=== PATIENT | male | born 1985 | race Caucasian/White ===

== ENCOUNTER 2017-09-23 13:34 | Emergency (ER) | payer BC, OTHER ==
[2017-09-23 13:53] VITALS: BP 136/85; PULSE 77; RESP 16; TEMP 97.6
[2017-09-23] MEDS ORDERED: LIDOCAINE 1% INJ 10MG/ML (20 ML MDV) SQ ONE (13:58)
--- NOTE | 2017-09-23 14:02 | ED ---
Wound/Laceration HPI - General Stated Complaint: rt hand lac Time Seen by Provider: 09/23/17 13:43 Source: patient, RN notes reviewed Mode of arrival: ambulatory Limitations: no limitations - History of Present Illness Initial Comments: This a 32-year-old male presents emergency Department from [facility] for right hand laceration. Patient states that he was tightening a bolt states that his wrench slipped his hand struck onto a metal bar. Patient has a laceration of his third and fourth digit. Patient was told that he has a laceration of his tendon on his third digit. He denies any paresthesias. Patient has full range of motion of all digits on his right hand. Patient is right-hand dominant. Patient's tetanus was up-to-date 5 years ago. - Related Data Previous Rx's Medication Instructions Recorded Cephalexin [Keflex] 500 mg PO Q8HR #21 cap 09/23/17 Allergies Allergy/AdvReac Type Severity Reaction Status Date / Time No Known Allergies Allergy Verified 09/23/17 13:54 Review of Systems ROS Statement: Those systems with pertinent positive or pertinent negative responses have been documented in the HPI. ROS Other: All systems not noted in ROS Statement are negative. Past Medical History Past Medical History: No Reported History History of Any Multi-Drug Resistant Organisms: None Reported Past Surgical History: No Surgical Hx Reported Past Psychological History: No Psychological Hx Reported Smoking Status: Never smoker Past Alcohol Use History: Heavy Past Drug Use History: None Reported General Exam General appearance: alert, in no apparent distress Head exam: Present: atraumatic, normocephalic, normal inspection Respiratory exam: Present: normal lung sounds bilaterally. Absent: respiratory distress, wheezes, rales, rhonchi, stridor Cardiovascular Exam: Present: regular rate, normal rhythm, normal heart sounds. Absent: systolic murmur, diastolic murmur, rubs, gallop, clicks Extremities exam: Present: other (Right hand third digit there is a 1 cm- laceration right hand fourth digit there is a 1 cm laceration, patient has full range of motion, full strength of all digits there is no obvious tendon laceration) Skin exam: Present: warm, dry, intact, normal color. Absent: rash Course Vital Signs 09/23/17 13:44 Temperature 97.6 F Pulse Rate 77 Respiratory 16 Rate Blood Pressure 136/85 O2 Sat by Pulse 99 Oximetry Procedures - Laceration Laceration #1 Consent Obtained: verbal consent Indication: laceration Site: hand (Right hand third digit ) Size (cm): 1 Description: linear Depth: simple, single layer Anesthetic Used: lidocaine 1%, without epi Anesthesia Technique: local infiltration Amount (mls): 3 Pre-repair: wound explored, irrigated extensively, deep structures intact Type of Sutures: nylon Size of Sutures: 4-0 Number of Sutures: 4 Technique: simple, interrupted Patient Tolerated Procedure: well, no complications Laceration #2 Consent Obtained: verbal consent Site: hand (Right hand fourth digit ) Size (cm): 1 Description: linear Depth: simple, single layer Anesthetic Used: lidocaine 1%, without epi Anesthesia Technique: local infiltration Amount (mls): 3 Pre-repair: wound explored, irrigated extensively, deep structures intact Type of Sutures: nylon Size of Sutures: 4-0 Number of Sutures: 3 Technique: simple, interrupted Patient Tolerated Procedure: well, no complications Medical Decision Making - Medical Decision Making 32-year-old male presented for possible tendon laceration. There is no tendon laceration at he has full range of motion I did discuss case with orthopedics and he can follow-up next week. They did request the patient placed on antibiotics. Patient was placed in a splint Disposition Clinical Impression: Finger laceration Disposition: HOME SELF-CARE Condition: Stable Instructions: Finger Laceration (ED), Care For Your Stitches (ED) Additional Instructions: Follow-up with orthopedics as directed.Please return to the Emergency Department if symptoms worsen or any other concerns. Prescriptions: Cephalexin [Keflex] 500 mg PO Q8HR #21 cap Is patient prescribed a controlled substance at d/c from ED?: No Referrals: Amanda Alcala MD [Primary Care Provider] - 1-2 days Gene Jackson DO [Doctor of Osteopathic Medicine] - 1-2 days Time of Disposition: 14:20
== END 2017-09-23 14:41 | disposition home or self-care (01) ==
LOC: EC 13:34
DX: S61.212A Laceration without foreign body of right middle finger without damage to nail, initial encounter (principal); S61.214A Laceration without foreign body of right ring finger without damage to nail, initial encounter; W27.8XXA Contact with other nonpowered hand tool, initial encounter; Y93.89 Activity, other specified; Y92.69 Other specified industrial and construction area as the place of occurrence of the external cause; Y99.0 Civilian activity done for income or pay
CPT/HCPCS: 12001; 99282

== ENCOUNTER → 2022-12-16 | Outpatient (CLI) | payer OTHER ==
--- NOTE | 2022-12-16 11:03 | XR ---
EXAMINATION TYPE: XR lumbar spine 2 or 3V DATE OF EXAM: 12/16/2022 CLINICAL HISTORY: pain TECHNIQUE: S39.012D Strain of muscle M54.16 Radiculopathy COMPARISON: None. FINDINGS: There are 6 lumbar type vertebral bodies identified. Incomplete fusion of the posterior arch of L6. T he lumbar spine shows satisfactory alignment without evidence of acute fracture or dislocation. Verte bral body heights are within normal limits. Disc spaces are within normal limits. The overlying so ft tissue appears unremarkable. IMPRESSION: 1. No acute fracture. 2. Spina bifida occulta at L6.
== END | disposition home or self-care (01) ==
LOC: RADXRMAIN 10:30
PROVIDERS: ATTEND Emergency Medicine
DX: S39.012D Strain of muscle, fascia and tendon of lower back, subsequent encounter (principal); M54.16 Radiculopathy, lumbar region; Q76.0 Spina bifida occulta
CPT/HCPCS: 72100

== ENCOUNTER → 2022-12-21 | Outpatient (CLI) | payer OTHER ==
--- NOTE | 2022-12-21 10:19 | XR ---
EXAMINATION TYPE: XR Hip Complete RT DATE OF EXAM: 12/21/2022 10:15 AM INDICATION: Patient age:Male; 37 years old; Reason for study: S76.001D UNSP INJURY OF MUSCLE, FASCIA AND TENDON; PHH. COMPARISON: None. TECHNIQUE: The right hip was examined in the frontal and lateral projections. FINDINGS: No evidence of any acute osseous pathology, joint dislocation, or soft tissue swelling. IMPRESSION: No acute osseous pathology.
== END | disposition home or self-care (01) ==
LOC: RADXRMAIN 09:38
PROVIDERS: ATTEND Emergency Medicine
DX: S76.001D Unspecified injury of muscle, fascia and tendon of right hip, subsequent encounter (principal); X58.XXXD Exposure to other specified factors, subsequent encounter
CPT/HCPCS: 73502